=== PATIENT | male | born 1990 | race Caucasian/White ===

== ENCOUNTER 2017-03-12 17:07 | Inpatient (IN) | payer OTHER ==
[~2017-03-12] VITALS: Ht 188 cm; Wt 59.0 kg
[~2017-03-12 17:07] MED LIST: ALBU8.5H2 INH; BUDE10.2 INH; Gabapentin PO; IBUP-1481 PO; Nicotine TD; Prednisone PO; SULF1TAB48 PO; TRAZ-144 PO
--- NOTE | 2017-03-12 23:50 | NUR ---
PRE-ADMISSION Pt's pre-admission assessment performed in the intake office of [facility]. Pt is A&O x4 and ambulatory with a steady gait. Pt does not appear intoxicated and answers all questions appropriately. He verbalizes that he has relapsed on Heroin IV and Methamphetamine IV ETOH. Pt denies food or drug allergies. Denies seizure history. Prior to intake, pt was admitted to ER d/t difficulty breathing r/t Asthma. Pt discharged from ER with discharge instructions relating to asthma. IV placed on right wrist in ER, IV site intact, patent, flushing well. Vital signs are B/P 99/58, HR 78, RR 18, O2 sat 95%, T 98, pain 0/10. Pt is able to provide urine drug screen during the intake process. Admission to be continued on the [facility] unit. Addendum: 03/13/17 at 0245 by ODELL MONDRAGON RN Clarification: Prior to arriving on the unit, pt was admitted to ER at [place] d/t [facility].
[2017-03-13] VITALS: BP 99/58
[2017-03-13] MEDS ORDERED: diphenhydrAMINE 50 MG CAPSULE PO PRN
[2017-03-13] MEDS ORDERED: ONDANSETRON ODT 4 MG TAB.RAPDIS SL PRN
[2017-03-13] MEDS ORDERED: DICYCLOMINE HCL 20 MG TABLET PO PRN
[2017-03-13] MEDS ORDERED: LOPERAMIDE HCL 2 MG CAPSULE PO PRN ×2
[2017-03-13] MEDS ORDERED: BUPRENORPHINE HCL 2 MG TAB.SUBL SL PRN
[2017-03-13] MEDS ORDERED: HYDROXYZINE PAMOATE 25 MG CAPSULE PO PRN
[2017-03-13] MEDS ORDERED: IBUPROFEN 600 MG TABLET PO PRN
[2017-03-13] MEDS ORDERED: MAGNESIUM HYDROXIDE 30 ML LIQUID UDC PO PRN
[2017-03-13] MEDS ORDERED: CLONIDINE HCL 0.1 MG TABLET PO PRN
[2017-03-13] MEDS ORDERED: ACETAMINOPHEN 325 MG TABLET PO PRN
[2017-03-13] MEDS ORDERED: MAG HYDROX/AL HYDROX/SIMETH 30 ML LIQUID UDC PO PRN
[2017-03-13] MEDS ORDERED: ONDANSETRON 4 MG/2 ML VIAL IM PRN
[2017-03-13] MEDS ORDERED: LORAZEPAM 1 MG TABLET PO PRN ×2
[2017-03-13] MEDS ORDERED: METHOCARBAMOL 750 MG TABLET PO PRN
[2017-03-13] MEDS ORDERED: LORAZEPAM 2 MG/1 ML VIAL IM PRN
[2017-03-13] MEDS ORDERED: MIRALAX 17 GM POWD.PACK PO PRN
--- NOTE | 2017-03-13 | NUR ---
Admission Note Pt is a 26 year old male admitted on 03/12/2017 for Opiate dependence, arrived on the unit at 2358. NKA, denies history of seizures. Pt was able to provide urine drug screen. Upon admission, COWS 5, BP 99/58, HR 78, RR 18, O2 sat 95% with 2 Liters of O2 via NC, T 98, pain 0/10, weight 130lb, height 6'2". Pt reports he does not have a primary care provider. Pt denies being hospitalized within the past 30 days. Pt reports he smokes occasionally, not daily. Pt is able to understand and respond to all questions pertaining to his hospitalization. Substance Abuse History is as Follows: 1. Heroin IV 1.5g/daily for the past 4 weeks, last intake on 03/12/2017 of 0.5g. Pt has been using since the age 18. 2. Methamphetamine IV 1/4g/weekly, last intake on 03/12/2017 of 1/4 g. Pt has been using since age 18. Pt was previously discharged from from [facility] on 10/03/2016. Pt reports he relapsed 4 weeks ago. Pt reports the trigger behind his relapse is, "because of my girlfriend". Pt reports his longest sober period was for 10 months in 2013. When pt does not drink he reports s/s of "body/muscle aches, runny nose, teary eyes, nausea, irritation". Treatment history is as follows: 1. [facility]- 08/28/16 to 09/24/16-IOP 2. [facility] 07/28/16 to 08/27/16 PCP 3. [facility] Jun 2016 for 2 weeks' 4. [facility]- december 2015 to March 2016 5. [facility] Rbzjepmn36/17/2016 PMH: Asthma and Bronchitis. Pt denies any past sx history. Pt reports he takes albuterol sulfate at home. During time of assessment, pt is alert/oriented x4, ambulatory, reports mild muscle aches, yawning noted, skin intact/flushed/clammy. SpO2 95% with O2 2liters via NC, denies feeling SOB/chest pain, denies n/v/d, bowel sounds active x4, abdomen soft. Pt denies SI/HI, educations information provided and left at bedside. Pt oriented to room and encouraged to notify staff with any concerns. Safety measures in place, call light within reach, side rails up x2, bed locked and in low position. Will continue to monitor. Addendum: 03/13/17 at 0723 by ODELL MONDRAGON RN Correction of Treatment History: 1. [facility]- 08/28/16 to 09/24/16-IOP 2. [facility] 07/28/16 to 08/27/16 PCP 3. [facility] Jun 2016 for 2 weeks' 4. [facility]- december 2015 to March 2016 5. [facility] Nqw[facility]hij07/07/2016
[2017-03-13 00:37] LABS: *AMPHETAMINE, URINE POSITIVE (NEGATIVE); *CANNABINOID, URINE NEGATIVE (NEGATIVE); *COCCAINE, URINE NEGATIVE (NEGATIVE); *OPIATE, URINE POSITIVE (NEGATIVE); *PHENCYCLIDINE SCREEN,URINE NEGATIVE (NEGATIVE)
[2017-03-13 00:45] LABS: *BARBITURATE, URINE NEGATIVE (NEGATIVE)
[2017-03-13 01:36] LABS: BASOPHILS % (AUTO) 0.1 % (0.0-2.0); EOSINOPHILS # (AUTO) 0.7 K/uL (0.0-0.7); EOSINOPHILS % (AUTO) 7.4 % (0.0-7.0); HEMATOCRIT 42.4 % (40-50); LYMPHOCYTES # (AUTO) 0.4 K/UL (0.8-4.8); LYMPHOCYTES % (AUTO) 3.7 % (20.5-51.5); MEAN CORPUSCULAR HEMOGLOBIN 30.4 UUG (27.0-31.0); MEAN CORPUSCULAR HGB CONC 36 g/dL (32.0-37.0); MEAN CORPUSCULAR VOLUME 85.6 FL (82.0-92.0); MONOCYTES # (AUTO) 0.2 K/UL (0.1-1.30); MONOCYTES % (AUTO) 1.6 % (0.0-11.0); NEUTROPHILS # (AUTO) 8.7 K/UL (1.8-8.9); NEUTROPHILS % (AUTO) 87.2 % (38.5-71.5); PLATELET COUNT (AUTO) 272 K/UL (150-450); RED BLOOD CELL COUNT(AUTO) 4.95 MIL/UL (4.7-6.1); RED CELL DISTRIBUTION WIDTH 12.7 % (11.5-14.5)
[2017-03-13 01:44] LABS: ALANINE AMINOTRANSFERASE 19 U/L (16-63); ALBUMIN 3.4 g/dL (3.4-5.0); ALKALINE PHOSPHATASE 88 U/L (50-136); AMYLASE 8 U/L (25-115); ASPARTATE AMINOTRANSFERASE 18 U/L (15-37); BILIRUBIN,TOTAL 0.7 mg/dL (0.2-1.0); CALCIUM 8.4 mg/dL (8.5-10.1); CARBON DIOXIDE 26 mmol/L (21-32); CHLORIDE 100 mmol/L (98-107); CREATININE 0.8 mg/dL (0.6-1.3); ETHANOL < 3 MG/DL (0-0); GFR 118 mL/min (>60); GLUCOSE 121 mg/dL (74-106); LIPASE 53 U/L (73-393); MAGNESIUM 2.2 mg/dL (1.8-2.4); POTASSIUM 3.6 mmol/L (3.5-5.1); SODIUM SERUM 137 mmol/L (136-145); TOTAL PROTEIN, SERUM 7.4 g/dL (6.4-8.2); UREA NITROGEN, BLOOD 10 mg/dL (7-18)
[2017-03-13 01:58] LABS: HIV-1/2 ANTIBODY NON REACTIVE (NONREACTIVE)
[2017-03-13 01:59] LABS: HIV-1 p24 ANTIGEN NON REACTIVE (NONREACTIVE)
[2017-03-13 04:00] VITALS: BP 119/68
--- NOTE | 2017-03-13 04:00 | NUR ---
Vital Signs BP 119/68, pulse 87, respirations 16, SpO2 96% with O2 2 liters via NC, temp 97.8, no pain COWS deferred d/t pt sleeping - to assess while pt is awake as ordered. Safety measures in place. Will continue to monitor.
[2017-03-13] MEDS ORDERED: NALO0.4A7 IJ (06:25)
[2017-03-13] MEDS ORDERED: NICO2LOZ BC (06:25)
--- NOTE | 2017-03-13 07:00 | NUR ---
End of Shift Pt is a 26 year old male admitted for Opiate dependence. Pt reported using Heroin IV 1.5g/daily for the past 4 weeks, last intake on 03/12/2017 of 0.5g and Methamphetamine IV 1/4g/weekly, last intake on 03/12/2017 of 1/4 g. Pt relapsed 3 weeks ago. PMH: Asthma and Bronchitis. Prior to arriving on the unit, pt was admitted to ER at [place] d/t [facility]. IV placed on right wrist in ER, IV site intact, patent, flushing well. Pt is on O2 2Liters via NC. No PRN medications administered during shift. COWS 2. Pt slept for 2 hour, intake of 500 ml PO and voids x1. Safety measures in place, call light within reach, side rails up x2, bed locked and in low positino. Endorsed to day shift nurse.
[2017-03-13 08:00] VITALS: BP 106/54
[2017-03-13] MEDS ORDERED: TUBERCULIN,PURIF.PROT.DERIV. 5 TU/0.1 ML TEST ID ONE (09:00)
[2017-03-13] MEDS: MULTIVITAMINS,THERAPEUTIC TABLET PO SCH (10:17)
[2017-03-13] MEDS ORDERED: SULFAMETH/TRIMETH 800/160 MG TABLET PO SCH (10:30)
--- NOTE | 2017-03-13 10:30 | NUR ---
START OF SHIFT Received report from overnight caregiver nurse. Received patient laying in bed. Patient is 26 year old male admitted for medically supervised withdrawal from heroin. Patient is full code with NKA. On fall and seizure precautions. Patient appears too sleepy but able to respond to questions and take his medications. Patient reports anxiety and mild stuffy nose and body aches. Patient SOB, satting at 95% at 1.5L via nasal cannula, denies chest pain. On assessment this AM: COWS: 5. Med compliant. TB skin test performed on LFA. Patient was encouraged to attend group meetings today. Will continue to monitor patient.
[2017-03-13] MEDS: predniSONE 20 MG TABLET PO SCH (11:04)
[2017-03-13] MEDS: BUPRENORPHINE HCL 2 MG TAB.SUBL SL SCH ×3 (13:00→20:43)
[2017-03-13] MEDS ORDERED: Medication Not On Formulary EA ([Gabapentin] (Neurontin) 300 MG) PO SCH (13:00)
[2017-03-13] MEDS: GABAPENTIN 300 MG CAPSULE PO SCH ×2 (13:24→16:51)
[2017-03-13 13:28] VITALS: BP 110/68
[2017-03-13] MEDS ORDERED: TRAZODONE 50 MG TABLET PO PRN (14:00)
[2017-03-13 16:00] VITALS: BP 102/59
[2017-03-13] MEDS ORDERED: PATIENT MAY USE OWN MED- MD OK INH SCH (17:00)
--- NOTE | 2017-03-13 19:39 | NUR ---
END OF SHIFT patient is 26 year old male admitted for medically supervised withdrawal from heroin. Patient is full code with NKA. On fall precautions. Patient remains in bed for the most part of the shift, appears sleepy but arousable and responsive to questions. Patient reports anxiety and mild stuffy nose and body aches. Patient SOB, satting at 95% at 2L via nasal cannula, denies chest pain. Most recent COWS: 7, held scheduled Subutex. Med compliant. TB skin test performed on LFA. Will continue to monitor patient.
--- NOTE | 2017-03-13 19:55 | NUR ---
Start of Shift Note: Report received from day shift nurse. Pt is a 26 yo male admitted on 03/12/17 for medically-supervised withdrawal from opiates. Pt reports using 1.5gm IV heroin daily for 3 weeks. Pt also reports use of IV methamphetamine. Pt is on day 1 of a 4-day Subutex taper, all doses held today as COWS was not high enough to initiate taper. Last day shift COWS=7, and no PRN medications were given during day shift. Pt reports NKDA/NKFA. Pt is on a regular diet and is a full code. Pt reports PMHx: asthma and bronchitis. Pt is on 2L O2 via NC. Pt received in room, and reports anxiety, agitation, diaphoresis, myalgia, nausea, lacrimation, chills; pupils 5mm. Bed is in low position and locked, side rails up x2, call light within reach. Will continue to monitor.
[2017-03-13 20:00] VITALS: BP 111/87
--- NOTE | 2017-03-13 21:41 | NUR ---
PRN Subutex: Patient reports that scheduled Subutex at 21:00 was not sufficiently effective at reducing s/s of opiate withdrawal. Patient reports daiphoresis, anxiety, agitation, tremor, watery eyes, nausea. COWS is 16. Administered PRN Subutex 4mg as ordered according to COWS score. Will reassess in 30 minutes.
--- NOTE | 2017-03-13 22:10 | NUR ---
PRN Reassessment: Patient reports decrease in anxiety, diaphoresis, lacrimation. Patient denies nausea. Pupils 3mm. COWS decreased from 16 to 6 thirty minutes after PRN Subutex 4mg SL administration. Will continue to monitor.
--- NOTE | 2017-03-14 | NUR ---
COWS Deferred: Ordered 00:00 COWS Q4HWA assessment deferred for sleep. Patient refuses BP and temp assessment, SpO2 96% on 2L O2 via NC, RR 16, HR 65. All safety precautions are in place. Will continue to monitor. Addendum: 03/14/17 at 0229 by BRENDAN DOUGLAS RN Amended: Links added.
[2017-03-14 04:00] VITALS: BP 112/52
--- NOTE | 2017-03-14 04:00 | NUR ---
COWS Deferred: Ordered 04:00 COWS assessment is deferred for sleep. V/S stable. All safety precautions are in place. Will continue to monitor. Addendum: 03/14/17 at 0447 by BRENDAN DOUGLAS RN Amended: Links added.
--- NOTE | 2017-03-14 07:02 | NUR ---
End of Shift Note: Pt is a 26 yo male admitted to [facility] on 03/12/17 for medically-supervised withdrawal from opiates. Pt reports PMHx: asthma and bronchitis. Pt is on 2L O2 via NC to maintain SpO2 at 95%. Pt reports NKDA/NKFA. Pt is on a regular diet. Pt is a full code. Pt reports using 1.5gm IV heroin daily for 3 weeks. Pt also reports use of IV methamphetamine. Pt is to start day 2 of a 4-day Subutex taper, first dose administered last night at 20:43 as COWS=16, which did not reduce COWS. PRN Subutex 4mg was given for COWS=16, which was effective and reduced COWS=6. Last COWS=6 at 22:10. V/S stable throughout shift. Total fluid intake this shift: 500 ml; output: urine x 1 and BM x 0. Pt currently in bed and slept 4 hours this shift. Pt endorsed to day shift nurse.
[2017-03-14 08:00] VITALS: BP 98/62
[2017-03-14] MEDS ORDERED: 4 DAY TAPER BUPRENORPHINE -SERENITY PROTOCOL SL PRN (09:00)
[2017-03-14] MEDS: GABAPENTIN 300 MG CAPSULE PO SCH ×3 (09:04→17:05)
[2017-03-14] MEDS: predniSONE 20 MG TABLET PO SCH (09:04)
[2017-03-14] MEDS: MULTIVITAMINS,THERAPEUTIC TABLET PO SCH (09:08)
[2017-03-14] MEDS: BUPRENORPHINE HCL 2 MG TAB.SUBL SL SCH ×3 (09:08→21:59)
[2017-03-14] MEDS: IPRATROPIUM BROMIDE 0.5 MG/2.5 ML NEBU NEB PRN (09:09)
[2017-03-14] MEDS: ALBUTEROL SULFATE 2.5 MG/ 0.5 ML NEBU NEB PRN (09:09)
--- NOTE | 2017-03-14 10:00 | NUR ---
START OF SHIFT Received report from svp chief marketing officer nurse. Received patient laying in bed. Patient is 26 year old male admitted for medically supervised withdrawal from heroin. Patient is full code with NKA. On fall precautions. Patient noted without his oxygen on, checked 02 saturation which was 88%, O2 cannula placed immediately. Patient reports he intermittently uses his oxygen. Patient shortly satting at 93% at 2L via nasal cannula. requested Respiratory to perform breathing treatment, which was done, patient satting between 95-98% afterwards. Reinforced continued use, patient verbalized understanding. On assessment this AM: COWS: 6.Patient reports anxiety, stomach cramps, body ache, dilated pupils, restlessness. Denies chest pain. Med compliant. Patient was encouraged to attend group meetings today. Will continue to monitor patient.
[2017-03-14 12:00] VITALS: BP 94/52
--- NOTE | 2017-03-14 12:22 | NUR ---
Clinician encouraged client to attend groups. Client was noncommittal.
[2017-03-14 14:12] LABS: HCV AB <0.1 s/co ratio (0.0-0.9); HEPATITIS B CORE AB, IgM Negative (Negative); HEPATITIS B SURFACE AG Negative (Negative)
[2017-03-14 16:00] VITALS: BP 112/54
--- NOTE | 2017-03-14 19:04 | NUR ---
END OF SHIFT Patient is 26 year old male admitted for medically supervised withdrawal from heroin. Patient is full code with NKA. On fall precautions. Patient is laying in his room for the most part of the shift watching TV. Patient reports anxiety, mild body aches and tremors. Patient is using 2L oxygen via nasal cannula satting at 95%, denies SOB and need for breathing treatment at this time. Patient denies chest pain. Patient is on 4-day Subutex. Most recent COWS: 4. Patient is med compliant. BM X1. Tolerating current diet without n/v. All needs met. job coach/job developercan striper will continue to monitor patient.
[2017-03-14 20:00] VITALS: BP 110/61
--- NOTE | 2017-03-14 20:00 | NUR ---
Start of Shift Note: Report received from day shift nurse. Pt is a 26 yo male admitted on 03/12/2017 for medically-supervised withdrawal from opiates. Pt reports using IV heroin 1.5gm/day for 3 weeks. Pt also reports use of IV methamphetamine. Pt is on day 2 of a 4-day Subutex taper. Last day shift COWS=4, and PRN Atrovent and Ventolin NEB were administered during day shift. Pt reports NKDA/NKFA. Pt is on a regular diet. Pt is a full code. Pt reports PMHx: asthma and bronchitis. Pt is on 2L O2 via NC. Pt received in room, and reports anxiety, diaphoresis, myalgia, generalized pain. O2 therapy education reinforced with good verbal understanding and agreement. Bed is in low position and locked, side rails up x2, call light within reach. Will continue to monitor.
[2017-03-15] VITALS: BP 94/51
--- NOTE | 2017-03-15 | NUR ---
COWS Deferred: Ordered COWS Q4HWA at 00:00 deferred for sleep. V/S stable. All safety precautions are in place. Will continue to monitor. Addendum: 03/15/17 at 0038 by BRENDAN DOUGLAS RN Amended: Links added.
[2017-03-15 04:00] VITALS: BP 100/49
--- NOTE | 2017-03-15 04:00 | NUR ---
COWS Deferred: COWS assessment is deferred for sleep. V/S stable. All safety precautions are in place. Will continue to monitor. Addendum: 03/15/17 at 0506 by BRENDAN DOUGLAS RN Amended: Links added.
--- NOTE | 2017-03-15 06:59 | NUR ---
End of Shift Note: Pt is a 26 yo male admitted on 03/12/17 for medically-supervised withdrawal from opiates. Pt reports PMHx: bronchitis and asthma. Pt reports NKDA/NKFA, is on a regular diet, and is a full code. Pt reports using 1.5gm IV heroin daily for 3 weeks. Pt also reports use of IV methamphetamine for 3 weeks. Pt is to start day 2 of a 4-day Subutex taper. Scheduled medication regime effectively managed s/s of withdrawal this shift, and no PRN medications were necessary. Last COWS=5 at 20:00. V/S stable throughout shift, with decreased BP of 94/51 at 00:00 and 100/49 at 04:00. Pt is on 2L O2 via NC to maintain SpO2 at 96-97%. Total fluid intake this shift: 1210 ml; output: urine x 1 and BM x 0. Pt currently in bed and slept 6 hours this shift. Pt endorsed to day shift nurse.
[2017-03-15 08:00] VITALS: BP 103/67
--- NOTE | 2017-03-15 08:15 | NUR ---
START OF SHIFT: RECEIVED PT LAYING IN BED A/O X 4. HE PRESENTS WITH DEPRESSED MOOD AND BLUNTED AFFECT. HE DENIES S/I AND H/I. HE REPORTS MILD BODY ACHES AND FEELS FATIGUED. HE STATES HE ALSO FEELS IRRITABLE. . O2@2 L VIA NC O2SAT 98%. PT DENIES SOB AT THIS TIME. ENCOURAGED PT TO INFORM NURSING IF HE NEEDS A NEBULIZER TX . COWS 3. ENCOURAGED GROUP ATTENDANCE TO IMPROVE COPING SKILLS AND PREVENT RELAPSE. ENCOURAGED INCREASED FLUIDS FOR HYDRATION. WILL CONTINUE TO MONITOR.
[2017-03-15] MEDS ORDERED: BUPRENORPHINE HCL 2 MG TAB.SUBL SL SCH (09:00)
[2017-03-15] MEDS: predniSONE 20 MG TABLET PO SCH (09:16)
[2017-03-15] MEDS: GABAPENTIN 300 MG CAPSULE PO SCH ×3 (09:17→16:43)
[2017-03-15] MEDS: MULTIVITAMINS,THERAPEUTIC TABLET PO SCH (09:17)
[2017-03-15 12:00] VITALS: BP 100/60
[2017-03-15] MEDS: BUPRENORPHINE HCL 2 MG TAB.SUBL SL SCH ×2 (14:00→20:45)
[2017-03-15 16:00] VITALS: BP 110/68
--- NOTE | 2017-03-15 18:47 | NUR ---
END OF SHIFT: PT CONTINUES ON SUBUTEX TAPER. HE USES O2 INTERMITTENTLY AND DID NOT NEED NEBULIZER BREATHING TREATMENT ON THIS SHIFT.HE C/O SOME ANXIETY,DEPRESSION AND MILD BODY ACHES AND STATES THE DETOX MEDS ARE EFFECTIVE. LAST COWS 3. HE WAS ISOLATIVE IN HIS ROOM AND HAD VERY LITTLE INTERACTION WITH PEERS.OFFERED ENCOURAGEMENT AND SUPPORT. NO PRNS GIVEN THIS SHIFT. WILL PASS SHIFT REPORT TO [facility] NIGHT NURSE.
[2017-03-15 20:00] VITALS: BP 115/64
--- NOTE | 2017-03-15 20:00 | NUR ---
Start of Shift Note: Report received from day shift nurse. Pt is a 26 Y/O male admitted on 03/12/2017 for medically-supervised withdrawal from opiates. Pt reports using 1.5gm IV heroin daily and 0.25gm IV methamphetamine weekly for 3 weeks. Pt is on the third day of a 4-day Subutex taper. Last day shift COWS=3, and no PRN's were administered during day shift. Pt reports NKDA/NKFA. Full code status. Pt is on a regular diet. Pt reports PMHx: asthma and bronchitis. Pt is on 2L O2 via NC; PRN Ventolin and Atrovent NEB available. Pt received in room, and reports anxiety and diaphoresis. Bed is in low position and locked, side rails up x2, call light within reach. Will continue to monitor.
[2017-03-15] MEDS: IPRATROPIUM BROMIDE 0.5 MG/2.5 ML NEBU NEB PRN (20:24)
[2017-03-15] MEDS: ALBUTEROL SULFATE 2.5 MG/ 0.5 ML NEBU NEB PRN (20:24)
[2017-03-15 20:55] LABS: HIV-1 p24 ANTIGEN NON REACTIVE (NONREACTIVE); HIV-1/2 ANTIBODY NON REACTIVE (NONREACTIVE)
[2017-03-16] VITALS: BP 86/52
--- NOTE | 2017-03-16 | NUR ---
COWS Deferred: Ordered COWS Q4HWA is deferred for sleep. V/S stable. All safety precautions are in place. Will continue to monitor. Addendum: 03/16/17 at 0249 by BRENDAN DOUGLAS RN Amended: Links added.
[2017-03-16 04:00] VITALS: BP 92/50
--- NOTE | 2017-03-16 04:00 | NUR ---
COWS Deferred: COWS assessment at 04:00 is deferred for sleep. V/S stable. Bed in low position, side rails up x2, call light within reach. Will continue to monitor. Addendum: 03/16/17 at 0409 by BRENDAN DOUGLAS RN Amended: Links added.
--- NOTE | 2017-03-16 06:57 | NUR ---
End of Shift Note: Pt is a 26 y/o male admitted on 03/12/17 for medically-supervised withdrawal from opiates. PMHx: bronchitis and asthma. Full code status, NKDA/NKFA, regular diet. Pt reports IV use of 1.5gm heroin daily and 0.25gm methamphetamine per week for 3 weeks. Pt is to start the third day of a 4-day Subutex taper. Scheduled medication regime effectively managed s/s of withdrawal this shift, and no PRN medications were necessary. Last COWS=5 at 20:00. V/S stable throughout shift. Pt is on 2L O2 via NC to maintain SpO2 at 95-96%; pt required Ventolin/Atrovent nebulizer treatment this shift. Total fluid intake this shift: 1301 ml; output: urine x 1 and BM x 0. Pt currently in bed and slept 4 hours this shift. Pt endorsed to day shift nurse.
--- NOTE | 2017-03-16 07:08 | NUR ---
Start of Shift Endorsement received from nightshift nurse. Pt is a 26 y/o male admitted for Heroin and Meth dependence. Pt has been placed on a 5 day Subutex taper.Pt is tolerating the taper well AEB COWS 3 at 1999. Pt presents with asthma and shortness of breath. Pt is on PRN 2L O2. PT maintains SpO2 above 95%. VS WNL, Full Code. Pt received a breathing treatment during the night for SOB. PT is alert and oriented x4. Pt is in STABLE condition at this time. Remains compliant with medication and diet regimen. All needs have been met, All safety measures in place per hospital policy. Bed in lowest position, side rails up x2, call-light within reach. Will continue to monitor
[2017-03-16 08:00] VITALS: BP 107/59
[2017-03-16] MEDS: BUPRENORPHINE HCL 2 MG TAB.SUBL SL SCH ×3 (08:37→22:05)
[2017-03-16] MEDS: GABAPENTIN 300 MG CAPSULE PO SCH ×3 (08:37→17:30)
[2017-03-16] MEDS: predniSONE 20 MG TABLET PO SCH (08:37)
[2017-03-16] MEDS: MULTIVITAMINS,THERAPEUTIC TABLET PO SCH (08:37)
[2017-03-16 12:00] VITALS: BP 107/59
[2017-03-16 16:00] VITALS: BP 96/58
--- NOTE | 2017-03-16 17:35 | NUR ---
Therapist informed client about group therapy times. Client refused to attend because he is not feeling well.
--- NOTE | 2017-03-16 18:59 | NUR ---
End of Shift Endorsement given to nightshift nurse. Pt is a 26 y/o male admitted for Heroin and Meth dependence. Pt has been placed on a 5 day Subutex taper.Pt is tolerating the taper well AEB COWS 2 at 1800. Educated pt on importance of using the O2 when he takes naps or sleeps. Pt is on PRN 2L O2. PT maintains SpO2 above 95%. Pt did not participate in groups or activates. Did not administer any PRN medications. Educated PT on importance of determining triggers that cause him to relapse and use heroin. Intake: 1400ml, Void x3, BM x0. VS WNL, Full Code. PT is alert and oriented x4. Pt is in STABLE condition at this time. Remains compliant with medication and diet regimen. All needs have been met, All safety measures in place per hospital policy. Bed in lowest position, side rails up x2, call-light within reach. Will continue to monitor
--- NOTE | 2017-03-16 19:03 | NUR ---
Start of shift note Received report from day shift nurse. Pt is a 26 yo male, A}+Ox4, presenting to [facility] for Opiate/Meth dependence. Pt has NKA, is Full code status, and on Regular diet. Pt has HX of Asthma and Bronchitis. Pt is on Fall precaution. Pt is on 4 day Subutex taper, tolerated well. No s/s of distress noted at this time. Respirations even and unlabored. Will continue to monitor.
[2017-03-16 20:15] VITALS: BP 117/61
[2017-03-17 00:54] VITALS: BP 110/59
[2017-03-17 04:18] VITALS: BP 105/73
--- NOTE | 2017-03-17 06:55 | NUR ---
End of shift note Pt is a 26 yo male, A+Ox4, presenting to [facility] for Opiate/Meth dependence. Pt has NKA, is Full code status, and on Regular diet. Pt has HX of Asthma and Bronchitis. Pt is on Fall precaution. Pt is on 4 day Subutex taper, tolerated well. Pt slept for a total of 8 HRS. Last COWS: 1 @0400. No s/s of distress noted at this time. Respirations even and unlabored. Will endorse to day shift nurse.
--- NOTE | 2017-03-17 07:00 | NUR ---
Start of Shift Endorsement received from nightshift nurse. Pt is a 26 y/o male admitted for Heroin and Meth dependence. Pt has been placed on a 5 day Subutex taper.Pt is tolerating the taper well AEB COWS 1 at 0400. Pt presents with asthma and shortness of breath. Pt is on PRN 2L O2. PT maintains SpO2 above 96%. Pt slept 8 hours. VS WNL, Full Code. Pt did not receive any PRN medications. Pt reports readiness for sobriety. PT is alert and oriented x4. Pt is in STABLE condition at this time. Remains compliant with medication and diet regimen. All needs have been met, All safety measures in place per hospital policy. Bed in lowest position, side rails up x2, call-light within reach. Will continue to monitor
[2017-03-17 08:00] VITALS: BP 88/51
[2017-03-17] MEDS: MULTIVITAMINS,THERAPEUTIC TABLET PO SCH (08:38)
[2017-03-17] MEDS: predniSONE 20 MG TABLET PO SCH (08:38)
[2017-03-17] MEDS: GABAPENTIN 300 MG CAPSULE PO SCH ×3 (08:38→17:00)
[2017-03-17] MEDS ORDERED: BUPRENORPHINE HCL 2 MG TAB.SUBL SL SCH (09:00)
[2017-03-17 12:00] VITALS: BP 101/52
[2017-03-17 16:00] VITALS: BP 92/48
[2017-03-17] MEDS ORDERED: HYDR-3895 PO (17:45)
[2017-03-17] MEDS ORDERED: PRED-170 PO (17:45)
[2017-03-17] MEDS ORDERED: CLON0.1T14 PO (17:45)
[2017-03-17] MEDS ORDERED: Gabapentin PO (17:45)
[2017-03-17 18:54] LABS: *AMPHETAMINE, URINE NEGATIVE (NEGATIVE); *BARBITURATE, URINE NEGATIVE (NEGATIVE); *CANNABINOID, URINE NEGATIVE (NEGATIVE); *COCCAINE, URINE NEGATIVE (NEGATIVE); *OPIATE, URINE NEGATIVE (NEGATIVE); *PHENCYCLIDINE SCREEN,URINE NEGATIVE (NEGATIVE)
--- NOTE | 2017-03-17 19:19 | NUR ---
End of Shift Endorsement given to nightshift nurse. Pt is a 26 y/o male admitted for Heroin and Meth dependence. Pt has been placed on a 5 day Subutex taper.Pt is tolerating the taper well AEB COWS 1 at 1600. PT is scheduled to be discharged on 03/18/17, all documentation has been completed, UDS has been performed. Pt did not participate in groups or activates. Did not administer any PRN medications. Educated PT on importance of determining triggers that cause him to relapse and use heroin. Intake: 1920ml, Void x3, BM x0. VS WNL, Full Code. PT is alert and oriented x4. Pt is in STABLE condition at this time. Remains compliant with medication and diet regimen. All needs have been met, All safety measures in place per hospital policy. Bed in lowest position, side rails up x2, call-light within reach. Will continue to monitor
--- NOTE | 2017-03-17 19:20 | NUR ---
Start of shift note Received report from day shift nurse. Pt is a 26 yo male, A}+Ox4, presenting to [facility] for Opiate/Meth dependence. Pt has NKA, is Full code status, and on Regular diet. Pt has HX of Asthma and Bronchitis. Pt is on Fall precaution. Pt has completed 4 day Subutex taper, tolerated well, and is due for discharge tomorrow. No s/s of distress noted at this time. Respirations even and unlabored. Will continue to monitor.
[2017-03-17 20:11] VITALS: BP 96/57
[2017-03-17] MEDS ORDERED: GABAPENTIN 300 MG CAPSULE PO SCH (20:30)
[2017-03-18 01:35] VITALS: BP 96/78
[2017-03-18 04:57] VITALS: BP_SYST 94; BP_SYST 96; BP_DIAS 62; BP_DIAS 78
--- NOTE | 2017-03-18 05:49 | NUR ---
END OF SHIFT REPORT: Patient alert, oriented x4, verbally responsive, makes his needs known to staff. Received report from day shift nurse. Pt has HX of Asthma and Bronchitis. Breathing even, unlabored, lungs clear. Patient refused to use O2 Nasal canula last night. Continues on fall, seizure precautions. Pt has completed 4 day Subutex taper. Last Cows -3. No s/s of distress noted at this time. No pain, no nausea, no dizziness at this time. Will continue to provide safe and supportive environment.
--- NOTE | 2017-03-18 07:54 | NUR ---
START OF SHIFT NOTE Received pt AOx4. Patient completed tapers. Patient scheduled for discharge this shift. Last CIWA 3 per night nurse. Vital signs stable. Will administer scheduled medications and discharge patient.
[2017-03-18 08:00] VITALS: BP 95/70
[2017-03-18] MEDS: MULTIVITAMINS,THERAPEUTIC TABLET PO SCH (08:21)
[2017-03-18] MEDS: predniSONE 20 MG TABLET PO SCH (08:22)
[2017-03-18] MEDS: GABAPENTIN 300 MG CAPSULE PO SCH (08:22)
--- NOTE | 2017-03-18 10:07 | NUR ---
DISCHARGE NOTE Patient was admitted for substance dependence. Last CIWA 0. Vital signs WNL. Patient states he has no pain or discomfort at this time. Patient denies any suicidal or homicidal ideations at this time. Patient reports he feels ready for discharge. Patient reviewed, dated, and signed all discharge paperwork and verbalized understanding. Patient was discharged with medications, rx, and all belongings. Patient ID band was removed and ambulated to lobby by PACKING MACHINE OPERATOR and was picked up by [employer] [facility] at 1005.
[2017-03-19] MEDS ORDERED: predniSONE 10 MG TABLET PO SCH (09:00)
[2017-03-21] MEDS ORDERED: predniSONE 5 MG TABLET PO SCH (09:00)
== END 2017-03-18 10:05 | DRG 895 ==
LOC: SRC 23:29
PROVIDERS: ADMIT Internal Medicine; ATTEND Internal Medicine
PROC: HZ2ZZZZ Detoxification Services for Substance Abuse Treatment (ICD-10-PCS; principal; 2017-03-12)
PROC: HZ31ZZZ Individual Counseling for Substance Abuse Treatment, Behavioral (ICD-10-PCS; 2017-03-14)
DX: F11.23 Opioid dependence with withdrawal (principal); J45.41 Moderate persistent asthma with (acute) exacerbation; F17.210 Nicotine dependence, cigarettes, uncomplicated; Z59.0 Homelessness; Z79.51 Long term (current) use of inhaled steroids; Z79.899 Other long term (current) drug therapy; F15.120 Other stimulant abuse with intoxication, uncomplicated
CPT/HCPCS: 36415; 80307; 80324; 80361; 83690; 83735; 84443; 85025; 86580; 86592; 86705; 86803; 87340; 87536; 87806; 94640; 94664; G6040-TC; J3590; J7512

== ENCOUNTER 2017-03-12 21:50 | Emergency (ER) | payer OTHER ==
[~2017-03-12] VITALS: Ht 188 cm; Wt 74.8 kg
[2017-03-12] MEDS: ALBUTEROL SULFATE 2.5 MG/3 ML NEBU NEB ONE ×2 (22:01→22:11)
[2017-03-12] MEDS ORDERED: IV NORMAL SALINE 1000 ML BAG IV ONE (22:15)
[2017-03-12] MEDS ORDERED: ALBUTEROL SULFATE 2.5 MG/3 ML NEBU NEB ONE ×2 (22:15)
[2017-03-12] MEDS ORDERED: methylPREDNISolone SOD SUCC 125 MG/2 ML VIAL IV ONE (22:15)
[2017-03-12] MEDS ORDERED: MAGNESIUM SULFATE 2 GM in IV DEXTROSE 5% 100 ML IV ONE (22:15)
[2017-03-12] MEDS ORDERED: IPRATROPIUM BROMIDE 0.5 MG/2.5 ML NEBU NEB ONE ×3 (22:15)
[2017-03-12] MEDS ORDERED: ALBUTEROL SULFATE 2.5 MG/3 ML NEBU ONE (22:36)
[2017-03-12] MEDS ORDERED: IPRATROPIUM BROMIDE 0.5 MG/2.5 ML NEBU ONE (22:36)
[2017-03-12] MEDS ORDERED: methylPREDNISolone SOD SUCC 125 MG/2 ML VIAL ONE (22:52)
[2017-03-12] MEDS ORDERED: MAGNESIUM SULFATE 1 GM/2 ML VIAL ONE (22:53)
--- NOTE | 2017-03-12 23:25 | NUR ---
Patient discharged to home in stable conditon. Written and verbal after care instructions given. Patient verbalizes understanding of instructions. ambulated from ER with stable gait. All belongings with patient. patient accompanied by [facility] staff .
[2017-03-12 23:28] VITALS: BP 131/74
[2017-03-13] MEDS ORDERED: NICO2LOZ BC (06:25)
[2017-03-13] MEDS ORDERED: NALO0.4A7 IJ (06:25)
[2017-03-17] MEDS ORDERED: Gabapentin PO (17:45)
[2017-03-17] MEDS ORDERED: HYDR-3895 PO (17:45)
[2017-03-17] MEDS ORDERED: CLON0.1T14 PO (17:45)
[2017-03-17] MEDS ORDERED: PRED-170 PO (17:45)
== END 2017-03-12 23:28 | disposition home or self-care (01) ==
LOC: ER 22:00
DX: J45.901 Unspecified asthma with (acute) exacerbation (principal)
CPT/HCPCS: 71010; A4663; J2930; J3475; J3590; J7030; J7060